=== PATIENT | female | born 1965 | race Caucasian/White ===

== ENCOUNTER 2016-11-25 09:11 | Emergency (ER) | payer BC ==
[2016-11-25 10:07] VITALS: BP 117/76
--- NOTE | 2016-11-25 11:02 | UC ---
Throat Pain/Nasal Michael HPI - HPI Summary HPI Summary: 4 weeks of chronic cough/congestion off and on. For the past 3 weeks, has had increasing head pressure, drainage, fatigue. Feels unwell. - History of Current Complaint Chief Complaint: UCGeneralIllness Stated Complaint: COUGH,CONGESTION Time Seen by Provider: 11/25/16 10:35 Hx Obtained From: Patient ?: No Onset/Duration: Gradual Onset, Lasting Weeks - 3 Severity: Moderate Cough: Nonproductive Associated Signs & Symptoms: Positive: Sinus Discomfort - Epiglottits Risk Factors Epiglottis Risk Factors: Negative - Allergies/Home Medications Allergies/Adverse Reactions: Allergies Allergy/AdvReac Type Severity Reaction Status Date / Time No Known Allergies Allergy Verified 01/03/15 13:25 PMH/Surg Hx/FS Hx/Imm Hx Previously Healthy: Yes Endocrine History Of: Denies: Diabetes Cardiovascular History Of: Denies: Hypertension, Pacemaker/ICD, Congestive Heart Failure, Atrial Fibrillation Respiratory History Of: Denies: COPD, Asthma, Bronchitis - Surgical History Surgical History: Yes Surgery Procedure, Year, and Place: L5-S1 FUSION - Family History Known Family History: Positive: Respiratory Disease - father had COPD - Social History Occupation: Employed Full-time Lives: With Family Alcohol Use: None Substance Use Type: None Smoking Status (MU): Never Smoked Tobacco - Immunization History Most Recent Tetanus Shot: unknown Review of Systems Constitutional: Fatigue Skin: Negative Eyes: Negative ENT: Sore Throat, Other - sinus pressure. Respiratory: Cough Cardiovascular: Negative Gastrointestinal: Negative Genitourinary: Negative Motor: Negative Neurovascular: Negative Musculoskeletal: Negative Neurological: Headache Psychological: Negative All Other Systems Reviewed And Are Negative: Yes Physical Exam Triage Information Reviewed: Yes Appearance: Ill-Appearing - looks mildly unwell Vital Signs: Initial Vital Signs Temp 98.5 F 11/25/16 10:02 Pulse 70 11/25/16 10:02 Resp 16 11/25/16 10:02 BP 117/76 11/25/16 10:02 Pulse Ox 100 11/25/16 10:02 Eyes: Positive: Conjunctiva Clear ENT: Positive: Pharyngeal erythema, TMs normal Neck: Positive: Supple, Nontender, No Lymphadenopathy Respiratory: Positive: Lungs clear, Normal breath sounds Cardiovascular: Positive: RRR, No Murmur Musculoskeletal Exam: Normal Neurological Exam: Normal Psychological Exam: Normal Skin Exam: Normal Throat Pain/Nasal Course/Dx - Course Course Of Treatment: amoxicillin for suspected sinusitis. - Differential Dx/Diagnosis Differential Diagnosis/HQI/PQRI: Influenza, Pharyngitis, Sinusitis, Tonsillitis Provider Diagnoses: sinusitis Discharge - Discharge Plan Condition: Stable Disposition: HOME Prescriptions: Amoxicillin (*) 875 mg PO BID #20 tab Patient Education Materials: Sinusitis (ED) Additional Instructions: begin course of amoxicillin for suspected sinusitis. Continue symptomatic treatment, rest and fluids.
== END 2016-11-25 11:52 | disposition home or self-care (01) ==
LOC: UCCORT 09:11
DX: J32.9 Chronic sinusitis, unspecified (principal); R05 Cough; R53.83 Other fatigue; Z98.1 Arthrodesis status
CPT/HCPCS: 99212; G0463

== ENCOUNTER 2017-02-21 12:59 | Emergency (ER) | payer BC ==
[2017-02-21 14:18] VITALS: BP 119/78
--- NOTE | 2017-02-21 15:00 | RAD ---
Indication: Left second toe pain. 3 views of left second toe demonstrates no fracture. No other bone or joint abnormality is identified. IMPRESSION: No fracture of left second toe is noted.
--- NOTE | 2017-02-21 15:23 | UC ---
Lower Extremity/Ankle HPI - HPI Summary HPI Summary: FOUR MONTHS OF LEFT 2ND TOE PAIN. PATIENT IS ACTIVE AND HAS HAD TOE PAIN SINCE TRIP TO [facility] IN NOVEMBER. NO KNOWN TRAUMA - History of Current Complaint Chief Complaint: UCLowerExtremity Stated Complaint: LEFT FOOT INDEX TOE Time Seen by Provider: 02/21/17 14:24 Hx Obtained From: Patient Onset/Duration: Gradual Onset, Lasting Weeks, Still Present Severity Initially: Mild Severity Currently: Mild Aggravating Factor(s): Standing, Ambulation Alleviating Factor(s): Rest, Elevation Able to Bear Weight: Yes - Allergies/Home Medications Allergies/Adverse Reactions: Allergies Allergy/AdvReac Type Severity Reaction Status Date / Time No Known Allergies Allergy Verified 02/21/17 14:14 Home Medications: Home Medications NK [No Home Medications Reported] 02/21/17 [History Confirmed 02/21/17] PMH/Surg Hx/FS Hx/Imm Hx Previously Healthy: Yes Endocrine History Of: Denies: Diabetes Cardiovascular History Of: Denies: Hypertension, Pacemaker/ICD, Congestive Heart Failure, Atrial Fibrillation Respiratory History Of: Denies: COPD, Asthma, Bronchitis - Surgical History Surgical History: Yes Surgery Procedure, Year, and Place: L5 S1 Fusion, 2007, [place] - Family History Known Family History: Positive: Respiratory Disease - father had COPD - Social History Occupation: Employed Full-time Lives: With Family Alcohol Use: None Substance Use Type: None Smoking Status (MU): Never Smoked Tobacco - Immunization History Most Recent Tetanus Shot: 01/03/15 Review of Systems Constitutional: Negative Skin: Negative Eyes: Negative ENT: Negative Respiratory: Negative Cardiovascular: Negative Gastrointestinal: Negative Genitourinary: Negative Motor: Negative Neurovascular: Negative Musculoskeletal: Arthralgia - LEFT DISTAL SECOND TOE, Myalgia Neurological: Negative Psychological: Negative All Other Systems Reviewed And Are Negative: Yes Physical Exam Triage Information Reviewed: Yes Appearance: Well-Appearing, No Pain Distress, Well-Nourished Vital Signs: Initial Vital Signs Temp 98.8 F 02/21/17 14:11 Pulse 80 02/21/17 14:11 Resp 16 02/21/17 14:11 BP 119/78 02/21/17 14:11 Pulse Ox 98 02/21/17 14:11 Vital Signs Reviewed: Yes Eye Exam: Normal ENT Exam: Normal ENT: Positive: Normal ENT inspection, Hearing grossly normal, TMs normal Dental Exam: Normal Neck exam: Normal Neck: Positive: Supple, Nontender Respiratory Exam: Normal Respiratory: Positive: Chest non-tender, Lungs clear, Normal breath sounds, No respiratory distress, No accessory muscle use Cardiovascular Exam: Normal Cardiovascular: Positive: RRR, No Murmur, Pulses Normal, Brisk Capillary Refill Abdominal Exam: Normal Abdomen Description: Positive: Nontender, No Organomegaly Musculoskeletal Exam: Normal Musculoskeletal: Positive: Strength Intact, ROM Intact, No Edema Neurological Exam: Normal Psychological Exam: Normal Skin Exam: Normal Lower Extremity Course/Dx - Differential Dx/Diagnosis Differential Diagnosis/HQI/PQRI: Fracture (Closed), Sprain, Strain, Other - GANGLION CYST Provider Diagnoses: LEFT SECOND TOE ARTHRALGIA Discharge - Discharge Plan Condition: Stable Disposition: HOME Patient Education Materials: Arthralgia (ED) Referrals: Art WEAVER,Anant Huang [Doctor of Podiatric Medicine] - Erica Robles MD [Primary Care Provider] -
== END 2017-02-21 15:21 | disposition home or self-care (01) ==
LOC: UCCORT 12:59
DX: M79.675 Pain in left toe(s) (principal)
CPT/HCPCS: 99211; G0463

== ENCOUNTER 2017-07-27 08:26 | Emergency (ER) | payer BC ==
[2017-07-27 09:36] VITALS: BP 113/80
--- NOTE | 2017-07-27 10:26 | UC ---
Throat Pain/Nasal Michael HPI - HPI Summary HPI Summary: Pt presents with c/o fever chills, sore throat, tender lymph nodes and chills X 3 days. Pt has not gotten flu vaccine this year. - History of Current Complaint Chief Complaint: UCRespiratory Stated Complaint: SORE THROAT,ACHY Time Seen by Provider: 07/27/17 10:14 Hx Obtained From: Patient Hx Last Menstrual Period: 1 yr+ ?: No Onset/Duration: Sudden Onset, Lasting Days, Still Present Severity: Mild Associated Signs & Symptoms: Positive: Dysphagia, Fever - Epiglottits Risk Factors Epiglottis Risk Factors: Sudden Onset - Allergies/Home Medications Allergies/Adverse Reactions: Allergies Allergy/AdvReac Type Severity Reaction Status Date / Time No Known Allergies Allergy Verified 07/27/17 08:45 Home Medications: Home Medications Acetaminophen [Acetaminophen Extra Stren] 1,000 mg PO ONCE PRN 07/27/17 [ History Confirmed 07/27/17] PMH/Surg Hx/FS Hx/Imm Hx Previously Healthy: Yes - Surgical History Surgical History: Yes Surgery Procedure, Year, and Place: L5 S1 Fusion, 2007, [place] - Family History Known Family History: Positive: Respiratory Disease - father had COPD - Social History Alcohol Use: None Substance Use Type: None Smoking Status (MU): Never Smoked Tobacco Have You Smoked in the Last Year: No - Immunization History Most Recent Tetanus Shot: 01/03/15 Review of Systems Constitutional: Fever, Chills, Fatigue Skin: Negative Eyes: Negative ENT: Sore Throat Respiratory: Negative Cardiovascular: Negative Gastrointestinal: Negative Genitourinary: Negative Motor: Negative Neurovascular: Negative Musculoskeletal: Negative Neurological: Negative Psychological: Negative Is Patient Immunocompromised?: No All Other Systems Reviewed And Are Negative: Yes Physical Exam Triage Information Reviewed: Yes Appearance: Well-Appearing Vital Signs: Initial Vital Signs Temp 99 F 07/27/17 08:37 Pulse 80 07/27/17 08:37 Resp 18 07/27/17 08:37 BP 113/80 07/27/17 08:37 Vital Signs Reviewed: Yes Eye Exam: Normal ENT Exam: Other ENT: Positive: Tonsillar swelling, Tonsillar exudate Dental Exam: Normal Neck exam: Normal Respiratory Exam: Normal Cardiovascular Exam: Normal Abdominal Exam: Normal Musculoskeletal Exam: Normal Neurological Exam: Normal Psychological Exam: Normal Skin Exam: Normal Throat Pain/Nasal Course/Dx - Differential Dx/Diagnosis Differential Diagnosis/HQI/PQRI: Influenza, Pharyngitis, Tonsillitis Provider Diagnoses: tonsillitis Discharge - Discharge Plan Condition: Stable Disposition: HOME Prescriptions: Penicillin VK 500 MG TAB(NF) [Penicillin VK 500 mg Tab] 1,000 mg PO Q12H #40 tab Patient Education Materials: Tonsillitis (ED) Referrals: Erica Robles MD [Primary Care Provider] - If Needed Additional Instructions: Please follow up with your PCP or return to clinic as needed.
[2017-07-27] MEDS ORDERED: Adenosine* 3 MG/ML VIAL IV PUSH ONE (11:42)
== END 2017-07-27 10:33 | disposition home or self-care (01) ==
LOC: UCCORT 08:26
DX: J03.90 Acute tonsillitis, unspecified (principal)
CPT/HCPCS: 87651; 99212; G0463; J0153

== ENCOUNTER 2018-10-12 09:00 | Emergency (ER) | payer BC ==
[2018-10-12 09:55] VITALS: BP 123/73
--- NOTE | 2018-10-12 10:13 | UC ---
UC General HPI - HPI Summary HPI Summary: Fever, body aches and chills for 4 days. Headache, back ache, congestion and cough. Temp 102 at onset. daughter recently dx flu. - History of Current Complaint Chief Complaint: UCRespiratory Stated Complaint: 2FER-FLU LIKE SYMPTOMS Time Seen by Provider: 10/12/18 09:56 Hx Obtained From: Patient Hx Last Menstrual Period: 3-4 yrs Timing: Constant Pain Intensity: 5 Associated Signs & Symptoms: Positive: Cough, Fever, Headache. Negative: Chest Pain - Allergy/Home Medications Allergies/Adverse Reactions: Allergies Allergy/AdvReac Type Severity Reaction Status Date / Time No Known Allergies Allergy Verified 10/12/18 09:56 Home Medications: Home Medications Acetaminophen [Acetaminophen Extra Strength] 1,000 mg PO Q6H PRN 10/12/18 [ History Confirmed 10/12/18] Ibuprofen TAB* [Motrin TAB* 800 MG] 800 mg PO Q6H PRN 10/12/18 [History Confirmed 10/12/18] PMH/Surg Hx/FS Hx/Imm Hx Previously Healthy: Yes - Surgical History Surgical History: Yes Surgery Procedure, Year, and Place: L5 S1 Fusion, 2007, [place] - Family History Known Family History: Positive: Respiratory Disease - father had COPD - Social History Occupation: Employed Full-time Alcohol Use: None Substance Use Type: None Smoking Status (MU): Never Smoked Tobacco Have You Smoked in the Last Year: No - Immunization History Most Recent Tetanus Shot: 01/03/15 Vaccination Up to Date: Yes Review of Systems All Other Systems Reviewed And Are Negative: Yes Constitutional: Positive: Fever, Chills Skin: Positive: Negative Eyes: Positive: Negative ENT: Positive: Sinus Congestion, Sinus Pain/Tenderness Respiratory: Positive: Cough Cardiovascular: Positive: Negative Gastrointestinal: Positive: Negative Genitourinary: Positive: Negative Motor: Positive: Negative Neurovascular: Positive: Negative Musculoskeletal: Positive: Myalgia Neurological: Positive: Headache Psychological: Positive: Negative Is Patient Immunocompromised?: No Physical Exam Triage Information Reviewed: Yes Appearance: Ill-Appearing - but non toxic Vital Signs: Initial Vital Signs Temp 100.5 F 10/12/18 09:51 Pulse 86 10/12/18 09:51 Resp 18 10/12/18 09:51 BP 123/73 10/12/18 09:51 Pulse Ox 98 10/12/18 09:51 Vital Signs Reviewed: Yes Eyes: Positive: Conjunctiva Clear ENT: Positive: Pharynx normal, Nasal congestion, TMs normal. Negative: Nasal drainage Neck: Positive: Supple, Nontender, No Lymphadenopathy. Negative: Nuchal Rigidity Respiratory: Positive: No respiratory distress, Decreased breath sounds - RLL, Other: - NPC Cardiovascular: Positive: RRR, No Murmur Abdomen Description: Positive: Nontender, No Organomegaly, Soft Bowel Sounds: Positive: Present Musculoskeletal: Positive: ROM Intact Neurological: Positive: Alert Psychological: Positive: Age Appropriate Behavior Skin Exam: Normal Diagnostics - Laboratory Diagnostic Studies Completed/Ordered: rapid flu is negative - Radiology No standard instances Radiology Interpretation Completed By: Radiologist - IMPRESSION: CHEST X-RAY FINDINGS ARE MOST CONSISTENT WITH RIGHT LOWER LOBE PNEUMONIA. FOLLOW-UP CHEST X- RAY AFTER AN APPROPRIATE COURSE OF THERAPY IS RECOMMENDED TO ASCERTAIN RESOLUTION. Course/Dx - Differential Dx - Multi-Symptom Differential Diagnoses: Other - flu, pneumonia - Diagnoses Provider Diagnosis: Pneumonia Discharge - Sign-Out/Discharge Documenting (check all that apply): Patient Departure All imaging exams completed and their final reports reviewed: Yes - Discharge Plan Condition: Stable Disposition: HOME Prescriptions: DOXYcycline CAP(*) [DOXYcycline 100MG CAP(*)] 100 mg PO BID 10 Days #20 cap Patient Education Materials: Community Acquired Pneumonia (DC) Forms: *Work Release Referrals: Erica Robles MD [Primary Care Provider] - 7 Days - Billing Disposition and Condition Condition: STABLE Disposition: Home - Attestation Statements Provider Attestation: I was available for consult. This patient was seen by the RONEL. The patient was not presented to , seen by or examined by wa -Kimberly Morton MD
== END 2018-10-12 11:13 | disposition home or self-care (01) ==
LOC: UCCORT 09:00
DX: J18.9 Pneumonia, unspecified organism (principal)
CPT/HCPCS: 71046; 99212; G0463